=== PATIENT | male | born 1940 | race Caucasian/White ===

== ENCOUNTER 2020-12-21 13:31 | Inpatient (IN) ==
[2020-12-21] MEDS: Acetaminophen 325 MG TABLET PO PRN (23:00)
[2020-12-22 06:00] LABS: Basophils % 0.2 %; Eosinophils # 0.3 K/mcL (0.0-0.6); Eosinophils % 2.9 %; Hematocrit 24.8 % (37.5-50.1); Hemoglobin 8.5 g/dL (12.9-16.9); Immature Granulocytes % 1.9 % (0-4); Lymphocytes # 1.1 K/mcL (0.6-4.6); Lymphocytes % 10.3 %; Mean Corpuscular HGB Conc 34.3 g/dL (31.6-35.5); Mean Corpuscular Hemoglobin 32.2 pg (28.0-33.3); Mean Corpuscular Volume 93.9 fL (83.0-100.0); Mean Platelet Volume 8.6 fL (9.4-12.4); Monocytes # 1.4 K/mcL (0.0-1.3); Monocytes % 13.8 %; Neutrophils # 7.2 K/mcL (1.6-8.9); Platelet Count 159 K/mcL (140-400); Red Blood Count 2.64 M/mcL (4.19-5.50); Red Cell Distribution Width 13.4 % (11.5-14.5); Segmented Neutrophils % 70.9 %; White Blood Count 10.2 K/mcL (4.3-11.1)
[2020-12-22 06:18] LABS: INR 2.2; Prothrombin Time 24.9 Seconds (9.4-12.1)
[2020-12-22 06:20] LABS: Activated Partial Thrombo Time 37.3 Seconds (26.0-36.0)
[2020-12-22 06:25] LABS: BUN/Creatinine Ratio 49 (6-26); Blood Urea Nitrogen 40 mg/dL (8-23); Calcium 7.8 mg/dL (8.6-10.3); Carbon Dioxide 25 mEq/L (23-29); Chloride 95 mEq/L (98-107); Glucose 134 mg/dL (70-105); Magnesium 1.8 mg/dL (1.6-2.6); Osmolality,Calculated 272 (280-300); Potassium 4.1 mEq/L (3.5-5.1); Sodium 125 mEq/L (136-145); eGFR For African Americans > 60 (> 60); eGFR For Non-African Americans > 60 (> 60)
[2020-12-22] MEDS: lisinopriL 20 MG TABLET PO SCH (09:59)
[2020-12-22] MEDS: Aspirin 81 MG TAB.CHEW PO SCH (09:59)
[2020-12-22] MEDS: Metoprolol XL (24 HR) Succ 50 MG TAB.ER.24H PO SCH (09:59)
[2020-12-22] MEDS: Acetaminophen 325 MG TABLET PO PRN ×2 (09:59→18:55)
[2020-12-22] MEDS: Cyanocobalamin (B-12) 1,000 MCG TABLET PO SCH (10:00)
[2020-12-22] MEDS: amLODIPine 5 MG TABLET PO SCH (10:00)
[2020-12-22] MEDS: Multivit/Ca/Min/Fe/FA 1 TAB TABLET PO SCH ×2 (10:00→22:20)
[2020-12-22] MEDS: Furosemide 40 MG TABLET PO SCH (10:00)
[2020-12-22] MEDS: Latanoprost 2.5 ML BOTTLE BOTH EYES SCH (10:04)
[2020-12-22] MEDS: Budesonide/Formoterol 80/4.5 1 PUFF INH IH SCH ×2 (10:40→19:43)
[2020-12-22] MEDS: *HR* Warfarin 3 MG TABLET PO SCH (18:01)
[2020-12-23 07:52] LABS: Hematocrit 22.4 % (37.5-50.1); Hemoglobin 7.6 g/dL (12.9-16.9); Mean Corpuscular HGB Conc 33.9 g/dL (31.6-35.5); Mean Corpuscular Hemoglobin 32.5 pg (28.0-33.3); Mean Corpuscular Volume 95.7 fL (83.0-100.0); Mean Platelet Volume 9.1 fL (9.4-12.4); Platelet Count 177 K/mcL (140-400); Red Blood Count 2.34 M/mcL (4.19-5.50); Red Cell Distribution Width 13.6 % (11.5-14.5); White Blood Count 9.2 K/mcL (4.3-11.1)
[2020-12-23 08:00] LABS: INR 2.3; Prothrombin Time 25.8 Seconds (9.4-12.1)
[2020-12-23] MEDS: Furosemide 40 MG TABLET PO SCH (09:37)
[2020-12-23] MEDS: amLODIPine 5 MG TABLET PO SCH (09:37)
[2020-12-23] MEDS: Metoprolol XL (24 HR) Succ 50 MG TAB.ER.24H PO SCH (09:37)
[2020-12-23] MEDS: Cyanocobalamin (B-12) 1,000 MCG TABLET PO SCH (09:38)
[2020-12-23] MEDS: lisinopriL 20 MG TABLET PO SCH (09:38)
[2020-12-23] MEDS: Aspirin 81 MG TAB.CHEW PO SCH (09:38)
[2020-12-23] MEDS: Latanoprost 2.5 ML BOTTLE BOTH EYES SCH (09:38)
[2020-12-23] MEDS: Multivit/Ca/Min/Fe/FA 1 TAB TABLET PO SCH ×2 (09:38→22:07)
[2020-12-23] MEDS: Acetaminophen 325 MG TABLET PO PRN ×2 (09:44→22:07)
[2020-12-23] MEDS: Budesonide/Formoterol 80/4.5 1 PUFF INH IH SCH ×2 (10:58→20:06)
[2020-12-23 11:55] LABS: Alanine Aminotransferase 31 Units/L (7-52); Albumin/Globulin Ratio 1.3 (1.1-2.2); Alkaline Phosphatase 46 Units/L (34-104); Aspartate Amino Transferase 56 Units/L (13-39); BUN/Creatinine Ratio 50 (6-26); Bilirubin,Total 0.7 mg/dL (0.3-1.0); Blood Urea Nitrogen 32 mg/dL (8-23); Carbon Dioxide 26 mEq/L (23-29); Chloride 98 mEq/L (98-107); Globulin 2.4 g/dL (2.4-3.5); Glucose 140 mg/dL (70-105); Magnesium 2.1 mg/dL (1.6-2.6); Osmolality,Calculated 277 (280-300); Potassium 4.3 mEq/L (3.5-5.1); Sodium 129 mEq/L (136-145); Total Protein 5.4 g/dL (6.4-8.9); eGFR For African Americans > 60 (> 60); eGFR For Non-African Americans > 60 (> 60)
[2020-12-23] MEDS: *HR* Warfarin 3 MG TABLET PO SCH (16:04)
[2020-12-24 05:45] LABS: Hematocrit 20.4 % (37.5-50.1); Hemoglobin 6.8 g/dL (12.9-16.9); Mean Corpuscular HGB Conc 33.3 g/dL (31.6-35.5); Mean Corpuscular Hemoglobin 31.9 pg (28.0-33.3); Mean Corpuscular Volume 95.8 fL (83.0-100.0); Mean Platelet Volume 8.8 fL (9.4-12.4); Platelet Count 175 K/mcL (140-400); Red Blood Count 2.13 M/mcL (4.19-5.50); Red Cell Distribution Width 13.7 % (11.5-14.5); White Blood Count 9.3 K/mcL (4.3-11.1)
[2020-12-24] MEDS ORDERED: 0.9 % Sodium Chloride 250 ML IVC SCH (07:00)
[2020-12-24] MEDS: Cyanocobalamin (B-12) 1,000 MCG TABLET PO SCH (07:57)
[2020-12-24] MEDS: lisinopriL 20 MG TABLET PO SCH (07:57)
[2020-12-24] MEDS: Aspirin 81 MG TAB.CHEW PO SCH (07:58)
[2020-12-24] MEDS: Metoprolol XL (24 HR) Succ 50 MG TAB.ER.24H PO SCH (07:58)
[2020-12-24] MEDS: amLODIPine 5 MG TABLET PO SCH (07:58)
[2020-12-24] MEDS: Furosemide 40 MG TABLET PO SCH (07:58)
[2020-12-24] MEDS: Multivit/Ca/Min/Fe/FA 1 TAB TABLET PO SCH ×2 (07:58→19:53)
[2020-12-24] MEDS: Latanoprost 2.5 ML BOTTLE BOTH EYES SCH (08:00)
[2020-12-24 08:18] LABS: % Iron Saturation 60 % (20-55); Alanine Aminotransferase 33 Units/L (7-52); Albumin 3.1 g/dL (3.5-5.7); Albumin/Globulin Ratio 1.4 (1.1-2.2); Alkaline Phosphatase 47 Units/L (34-104); Aspartate Amino Transferase 48 Units/L (13-39); BUN/Creatinine Ratio 61 (6-26); Bilirubin,Total 0.8 mg/dL (0.3-1.0); Blood Urea Nitrogen 43 mg/dL (8-23); Calcium 8.1 mg/dL (8.6-10.3); Carbon Dioxide 25 mEq/L (23-29); Chloride 99 mEq/L (98-107); Globulin 2.2 g/dL (2.4-3.5); Glucose 139 mg/dL (70-105); Iron 126 mcg/dL (65-175); Magnesium 2.2 mg/dL (1.6-2.6); Osmolality,Calculated 281 (280-300); Potassium 4.5 mEq/L (3.5-5.1); Sodium 129 mEq/L (136-145); Total Protein 5.3 g/dL (6.4-8.9); Transferrin 150 mg/dL (203-362); eGFR For African Americans > 60 (> 60); eGFR For Non-African Americans > 60 (> 60)
[2020-12-24] MEDS: Budesonide/Formoterol 80/4.5 1 PUFF INH IH SCH ×2 (08:21→19:32)
[2020-12-24 08:42] LABS: Folate 6.2 ng/mL (3.0-16.0)
[2020-12-24 12:45] LABS: INR 2.8; Prothrombin Time 31.1 Seconds (9.4-12.1)
[2020-12-24] MEDS ORDERED: 0.9 % Sodium Chloride 250 ML ONE (13:34)
[2020-12-24 17:58] LABS: Hemoglobin 7.8 g/dL (12.9-16.9)
[2020-12-24] MEDS ORDERED: Warfarin perPT PO PRN (18:00)
[2020-12-24] MEDS: *HR* OxyCODONE/APAP 5/325 TABLET PO PRN (19:53)
[2020-12-25 06:15] LABS: INR 2.8; Prothrombin Time 31.1 Seconds (9.4-12.1)
[2020-12-25 06:19] LABS: Hematocrit 22.6 % (37.5-50.1); Hemoglobin 7.4 g/dL (12.9-16.9); Mean Corpuscular HGB Conc 32.7 g/dL (31.6-35.5); Mean Corpuscular Hemoglobin 31.6 pg (28.0-33.3); Mean Corpuscular Volume 96.6 fL (83.0-100.0); Mean Platelet Volume 8.5 fL (9.4-12.4); Platelet Count 204 K/mcL (140-400); Red Blood Count 2.34 M/mcL (4.19-5.50); Red Cell Distribution Width 14.3 % (11.5-14.5); White Blood Count 8.8 K/mcL (4.3-11.1)
[2020-12-25] MEDS: lisinopriL 20 MG TABLET PO SCH (07:51)
[2020-12-25] MEDS: Metoprolol XL (24 HR) Succ 50 MG TAB.ER.24H PO SCH (07:51)
[2020-12-25] MEDS: Multivit/Ca/Min/Fe/FA 1 TAB TABLET PO SCH ×2 (07:51→20:50)
[2020-12-25] MEDS: Furosemide 40 MG TABLET PO SCH (07:51)
[2020-12-25] MEDS: amLODIPine 5 MG TABLET PO SCH (07:51)
[2020-12-25] MEDS: Cyanocobalamin (B-12) 1,000 MCG TABLET PO SCH (07:51)
[2020-12-25] MEDS: Aspirin 81 MG TAB.CHEW PO SCH (07:52)
[2020-12-25] MEDS: Latanoprost 2.5 ML BOTTLE BOTH EYES SCH (07:52)
[2020-12-25 08:23] LABS: BUN/Creatinine Ratio 56 (6-26); Blood Urea Nitrogen 33 mg/dL (8-23); Calcium 8.2 mg/dL (8.6-10.3); Carbon Dioxide 25 mEq/L (23-29); Chloride 102 mEq/L (98-107); Glucose 135 mg/dL (70-105); Osmolality,Calculated 281 (280-300); Potassium 4.5 mEq/L (3.5-5.1); Sodium 131 mEq/L (136-145); eGFR For African Americans > 60 (> 60); eGFR For Non-African Americans > 60 (> 60)
[2020-12-25] MEDS: Budesonide/Formoterol 80/4.5 1 PUFF INH IH SCH ×2 (10:51→20:39)
[2020-12-25] MEDS: *HR* OxyCODONE/APAP 5/325 TABLET PO PRN (15:29)
[2020-12-25 16:05] LABS: Hematocrit 22.3 % (37.5-50.1); Hemoglobin 7.5 g/dL (12.9-16.9); Mean Corpuscular HGB Conc 33.6 g/dL (31.6-35.5); Mean Corpuscular Hemoglobin 32.6 pg (28.0-33.3); Mean Platelet Volume 8.4 fL (9.4-12.4); Platelet Count 205 K/mcL (140-400); Red Cell Distribution Width 14.4 % (11.5-14.5); White Blood Count 9.1 K/mcL (4.3-11.1)
[2020-12-25] MEDS: Acetaminophen 325 MG TABLET PO PRN (20:50)
[2020-12-25] MEDS: QUEtiapine Fumarate 25 MG TABLET PO SCH (20:50)
[2020-12-26 04:45] LABS: Hematocrit 21.5 % (37.5-50.1); Hemoglobin 7.2 g/dL (12.9-16.9); Mean Corpuscular HGB Conc 33.5 g/dL (31.6-35.5); Mean Corpuscular Hemoglobin 32.3 pg (28.0-33.3); Mean Corpuscular Volume 96.4 fL (83.0-100.0); Mean Platelet Volume 8.9 fL (9.4-12.4); Platelet Count 219 K/mcL (140-400); Red Blood Count 2.23 M/mcL (4.19-5.50); Red Cell Distribution Width 14.2 % (11.5-14.5); White Blood Count 8.3 K/mcL (4.3-11.1)
[2020-12-26 08:18] LABS: BUN/Creatinine Ratio 50 (6-26); Blood Urea Nitrogen 31 mg/dL (8-23); Calcium 8.1 mg/dL (8.6-10.3); Carbon Dioxide 26 mEq/L (23-29); Chloride 101 mEq/L (98-107); Glucose 123 mg/dL (70-105); Magnesium 1.9 mg/dL (1.6-2.6); Osmolality,Calculated 280 (280-300); Potassium 4.3 mEq/L (3.5-5.1); Sodium 131 mEq/L (136-145); eGFR For African Americans > 60 (> 60); eGFR For Non-African Americans > 60 (> 60)
[2020-12-26] MEDS: Aspirin 81 MG TAB.CHEW PO SCH (09:39)
[2020-12-26] MEDS: Furosemide 40 MG TABLET PO SCH (09:39)
[2020-12-26] MEDS: Metoprolol XL (24 HR) Succ 50 MG TAB.ER.24H PO SCH (09:39)
[2020-12-26] MEDS: lisinopriL 20 MG TABLET PO SCH (09:40)
[2020-12-26] MEDS: Cyanocobalamin (B-12) 1,000 MCG TABLET PO SCH (09:40)
[2020-12-26] MEDS: amLODIPine 5 MG TABLET PO SCH (09:40)
[2020-12-26] MEDS: Multivit/Ca/Min/Fe/FA 1 TAB TABLET PO SCH ×2 (09:40→21:51)
[2020-12-26] MEDS: Latanoprost 2.5 ML BOTTLE BOTH EYES SCH (09:43)
[2020-12-26] MEDS: Budesonide/Formoterol 80/4.5 1 PUFF INH IH SCH ×2 (11:22→20:57)
[2020-12-26] MEDS: Acetaminophen 325 MG TABLET PO PRN ×2 (13:46→21:52)
[2020-12-26] MEDS ORDERED: *HR* Warfarin 3 MG TABLET PO SCH (18:00)
[2020-12-26] MEDS: QUEtiapine Fumarate 25 MG TABLET PO SCH (21:51)
[2020-12-27 04:52] LABS: Basophils % 0.2 %; Eosinophils # 0.3 K/mcL (0.0-0.6); Eosinophils % 3.6 %; Hemoglobin 7.4 g/dL (12.9-16.9); Immature Granulocytes % 3.2 % (0-4); Mean Corpuscular HGB Conc 33.6 g/dL (31.6-35.5); Mean Corpuscular Hemoglobin 32.7 pg (28.0-33.3); Mean Corpuscular Volume 97.3 fL (83.0-100.0); Mean Platelet Volume 8.8 fL (9.4-12.4); Monocytes # 0.8 K/mcL (0.0-1.3); Monocytes % 10.2 %; Neutrophils # 5.7 K/mcL (1.6-8.9); Platelet Count 233 K/mcL (140-400); Red Blood Count 2.26 M/mcL (4.19-5.50); Red Cell Distribution Width 14.2 % (11.5-14.5); Segmented Neutrophils % 70.8 %; White Blood Count 8.1 K/mcL (4.3-11.1)
[2020-12-27 04:58] LABS: INR 1.7; Prothrombin Time 19.2 Seconds (9.4-12.1)
[2020-12-27] MEDS: Acetaminophen 325 MG TABLET PO PRN ×3 (07:42→21:11)
[2020-12-27] MEDS: Furosemide 40 MG TABLET PO SCH (07:43)
[2020-12-27] MEDS: Cyanocobalamin (B-12) 1,000 MCG TABLET PO SCH (07:43)
[2020-12-27] MEDS: Aspirin 81 MG TAB.CHEW PO SCH (07:43)
[2020-12-27] MEDS: amLODIPine 5 MG TABLET PO SCH (07:43)
[2020-12-27] MEDS: lisinopriL 20 MG TABLET PO SCH (07:43)
[2020-12-27] MEDS: Metoprolol XL (24 HR) Succ 50 MG TAB.ER.24H PO SCH (07:43)
[2020-12-27] MEDS: Multivit/Ca/Min/Fe/FA 1 TAB TABLET PO SCH ×2 (07:43→20:12)
[2020-12-27] MEDS: Latanoprost 2.5 ML BOTTLE BOTH EYES SCH (07:44)
[2020-12-27] MEDS: Budesonide/Formoterol 80/4.5 1 PUFF INH IH SCH ×2 (10:37→21:21)
[2020-12-27] MEDS ORDERED: Warfarin perPT PO PRN (18:00)
[2020-12-27] MEDS ORDERED: *HR* Warfarin 3 MG TABLET PO ONE (18:00)
[2020-12-27] MEDS: QUEtiapine Fumarate 25 MG TABLET PO SCH (20:12)
[2020-12-28 06:36] LABS: INR 1.4
[2020-12-28] MEDS: Budesonide/Formoterol 80/4.5 1 PUFF INH IH SCH ×2 (08:25→19:57)
[2020-12-28] MEDS: Cyanocobalamin (B-12) 1,000 MCG TABLET PO SCH (08:41)
[2020-12-28] MEDS: amLODIPine 5 MG TABLET PO SCH (08:41)
[2020-12-28] MEDS: Aspirin 81 MG TAB.CHEW PO SCH (08:41)
[2020-12-28] MEDS: Metoprolol XL (24 HR) Succ 50 MG TAB.ER.24H PO SCH (08:42)
[2020-12-28] MEDS: Acetaminophen 325 MG TABLET PO PRN ×2 (08:42→21:16)
[2020-12-28] MEDS: lisinopriL 20 MG TABLET PO SCH (08:42)
[2020-12-28] MEDS: Multivit/Ca/Min/Fe/FA 1 TAB TABLET PO SCH ×2 (08:42→21:17)
[2020-12-28] MEDS: Furosemide 40 MG TABLET PO SCH (08:42)
[2020-12-28] MEDS: Latanoprost 2.5 ML BOTTLE BOTH EYES SCH (08:43)
[2020-12-28] MEDS: *HR* Enoxaparin 150 MG/ML SYRINGE SQ SCH (16:21)
[2020-12-28] MEDS ORDERED: *HR* Warfarin 3 MG TABLET PO ONE (18:00)
[2020-12-28] MEDS: QUEtiapine Fumarate 25 MG TABLET PO SCH (21:16)
[2020-12-29 05:41] LABS: Basophils % 0.2 %; Eosinophils # 0.2 K/mcL (0.0-0.6); Eosinophils % 2.3 %; Hematocrit 23.4 % (37.5-50.1); Hemoglobin 7.8 g/dL (12.9-16.9); Immature Granulocytes % 2.6 % (0-4); Lymphocytes # 0.7 K/mcL (0.6-4.6); Lymphocytes % 8.3 %; Mean Corpuscular HGB Conc 33.3 g/dL (31.6-35.5); Mean Corpuscular Hemoglobin 32.9 pg (28.0-33.3); Mean Corpuscular Volume 98.7 fL (83.0-100.0); Mean Platelet Volume 8.5 fL (9.4-12.4); Monocytes # 0.8 K/mcL (0.0-1.3); Monocytes % 8.6 %; Neutrophils # 6.9 K/mcL (1.6-8.9); Platelet Count 294 K/mcL (140-400); Red Blood Count 2.37 M/mcL (4.19-5.50); Red Cell Distribution Width 15.1 % (11.5-14.5); White Blood Count 8.8 K/mcL (4.3-11.1)
[2020-12-29 05:45] LABS: INR 1.6; Prothrombin Time 17.4 Seconds (9.4-12.1)
[2020-12-29] MEDS: *HR* Enoxaparin 150 MG/ML SYRINGE SQ SCH ×2 (06:03→16:41)
[2020-12-29] MEDS: Multivit/Ca/Min/Fe/FA 1 TAB TABLET PO SCH ×2 (08:53→20:17)
[2020-12-29] MEDS: amLODIPine 5 MG TABLET PO SCH (08:53)
[2020-12-29] MEDS: Acetaminophen 325 MG TABLET PO PRN (08:54)
[2020-12-29] MEDS: Cyanocobalamin (B-12) 1,000 MCG TABLET PO SCH (08:54)
[2020-12-29] MEDS: Aspirin 81 MG TAB.CHEW PO SCH (08:54)
[2020-12-29] MEDS: lisinopriL 20 MG TABLET PO SCH (08:54)
[2020-12-29] MEDS: Furosemide 40 MG TABLET PO SCH (08:55)
[2020-12-29] MEDS: Metoprolol XL (24 HR) Succ 50 MG TAB.ER.24H PO SCH (08:55)
[2020-12-29] MEDS: Latanoprost 2.5 ML BOTTLE BOTH EYES SCH (08:56)
[2020-12-29] MEDS: Budesonide/Formoterol 80/4.5 1 PUFF INH IH SCH ×2 (09:49→20:29)
[2020-12-29] MEDS ORDERED: *HR* Warfarin 3 MG TABLET PO ONE (18:00)
[2020-12-29] MEDS: QUEtiapine Fumarate 25 MG TABLET PO SCH (20:17)
[2020-12-30] MEDS: *HR* Enoxaparin 150 MG/ML SYRINGE SQ SCH ×2 (05:11→16:30)
[2020-12-30 06:10] LABS: INR 1.7; Prothrombin Time 19.4 Seconds (9.4-12.1)
[2020-12-30] MEDS: Metoprolol XL (24 HR) Succ 50 MG TAB.ER.24H PO SCH (09:44)
[2020-12-30] MEDS: Furosemide 40 MG TABLET PO SCH (09:44)
[2020-12-30] MEDS: Multivit/Ca/Min/Fe/FA 1 TAB TABLET PO SCH ×2 (09:44→20:37)
[2020-12-30] MEDS: lisinopriL 20 MG TABLET PO SCH (09:44)
[2020-12-30] MEDS: Cyanocobalamin (B-12) 1,000 MCG TABLET PO SCH (09:44)
[2020-12-30] MEDS: amLODIPine 5 MG TABLET PO SCH (09:45)
[2020-12-30] MEDS: Aspirin 81 MG TAB.CHEW PO SCH (09:45)
[2020-12-30] MEDS: Latanoprost 2.5 ML BOTTLE BOTH EYES SCH (09:48)
[2020-12-30] MEDS: Budesonide/Formoterol 80/4.5 1 PUFF INH IH SCH ×2 (11:21→20:08)
[2020-12-30] MEDS ORDERED: *HR* Warfarin 3 MG TABLET PO ONE (18:00)
[2020-12-30] MEDS: QUEtiapine Fumarate 25 MG TABLET PO SCH (20:37)
[2020-12-30] MEDS: Acetaminophen 325 MG TABLET PO PRN (20:37)
[2020-12-31 04:51] LABS: INR 1.9; Prothrombin Time 21.3 Seconds (9.4-12.1)
[2020-12-31] MEDS: *HR* Enoxaparin 150 MG/ML SYRINGE SQ SCH ×2 (05:19→16:37)
[2020-12-31] MEDS: Acetaminophen 325 MG TABLET PO PRN (08:08)
[2020-12-31] MEDS: Aspirin 81 MG TAB.CHEW PO SCH (08:08)
[2020-12-31] MEDS: amLODIPine 5 MG TABLET PO SCH (08:09)
[2020-12-31] MEDS: Metoprolol XL (24 HR) Succ 50 MG TAB.ER.24H PO SCH (08:09)
[2020-12-31] MEDS: Multivit/Ca/Min/Fe/FA 1 TAB TABLET PO SCH ×2 (08:09→20:30)
[2020-12-31] MEDS: Furosemide 40 MG TABLET PO SCH (08:09)
[2020-12-31] MEDS: Cyanocobalamin (B-12) 1,000 MCG TABLET PO SCH (08:10)
[2020-12-31] MEDS: lisinopriL 20 MG TABLET PO SCH (08:10)
[2020-12-31] MEDS: Latanoprost 2.5 ML BOTTLE BOTH EYES SCH (08:14)
[2020-12-31] MEDS: Budesonide/Formoterol 80/4.5 1 PUFF INH IH SCH ×2 (10:40→20:03)
[2020-12-31 14:08] LABS: Adenovirus Not Detected (Not Detect); Coronavirus 229E Not Detected (Not Detect); Coronavirus HKU1 Not Detected (Not Detect); Coronavirus NL63 Not Detected (Not Detect); Coronavirus OC43 Not Detected (Not Detect); SARS-CoV-2 Not Detected (Not Detect)
[2020-12-31 14:09] LABS: Bordetella Pertussis Not Detected (Not Detect); Chlamydophila pneumoniae Not Detected (Not Detect); Human Metapneumovirus Not Detected (Not Detect); Human Rhinovirus/Enterovirus Not Detected (Not Detect); Influenza A Subtype 2009 H1 Not Detected (Not Detect); Influenza B Not Detected (Not Detect); Mycoplasma pneumoniae Not Detected (Not Detect); Parainfluenza Virus 1 Not Detected (Not Detect); Parainfluenza Virus 2 Not Detected (Not Detect); Parainfluenza Virus 3 Not Detected (Not Detect); Parainfluenza Virus 4 Not Detected (Not Detect); Respiratory Syncytial Virus Not Detected (Not Detect)
[2020-12-31] MEDS ORDERED: *HR* Warfarin 3 MG TABLET PO ONE (18:00)
[2020-12-31] MEDS: QUEtiapine Fumarate 25 MG TABLET PO SCH (20:29)
[2021-01-01 04:52] LABS: Basophils % 0.2 %; Eosinophils # 0.1 K/mcL (0.0-0.6); Eosinophils % 0.6 %; Hematocrit 22.1 % (37.5-50.1); Hemoglobin 7.3 g/dL (12.9-16.9); Immature Granulocytes % 0.8 % (0-4); Lymphocytes # 0.5 K/mcL (0.6-4.6); Lymphocytes % 6.1 %; Mean Corpuscular Hemoglobin 32.3 pg (28.0-33.3); Mean Corpuscular Volume 97.8 fL (83.0-100.0); Mean Platelet Volume 8.8 fL (9.4-12.4); Monocytes # 0.7 K/mcL (0.0-1.3); Monocytes % 8.6 %; Platelet Count 255 K/mcL (140-400); Red Blood Count 2.26 M/mcL (4.19-5.50); Red Cell Distribution Width 15.7 % (11.5-14.5); Segmented Neutrophils % 83.7 %; White Blood Count 8.4 K/mcL (4.3-11.1)
[2021-01-01 04:56] LABS: INR 2.9; Prothrombin Time 32.1 Seconds (9.4-12.1)
[2021-01-01] MEDS: Acetaminophen 325 MG TABLET PO PRN ×2 (04:59→20:19)
[2021-01-01] MEDS: *HR* Enoxaparin 150 MG/ML SYRINGE SQ SCH (05:00)
[2021-01-01 05:05] LABS: BUN/Creatinine Ratio 51 (6-26); Blood Urea Nitrogen 27 mg/dL (8-23); Calcium 7.6 mg/dL (8.6-10.3); Carbon Dioxide 27 mEq/L (23-29); Chloride 100 mEq/L (98-107); Glucose 135 mg/dL (70-105); Osmolality,Calculated 281 (280-300); Potassium 3.6 mEq/L (3.5-5.1); Sodium 132 mEq/L (136-145); eGFR For African Americans > 60 (> 60); eGFR For Non-African Americans > 60 (> 60)
[2021-01-01] MEDS: Multivit/Ca/Min/Fe/FA 1 TAB TABLET PO SCH ×2 (08:44→20:19)
[2021-01-01] MEDS: amLODIPine 5 MG TABLET PO SCH (08:45)
[2021-01-01] MEDS: Metoprolol XL (24 HR) Succ 50 MG TAB.ER.24H PO SCH (08:45)
[2021-01-01] MEDS: lisinopriL 20 MG TABLET PO SCH (08:45)
[2021-01-01] MEDS: Aspirin 81 MG TAB.CHEW PO SCH (08:45)
[2021-01-01] MEDS: Furosemide 40 MG TABLET PO SCH (08:45)
[2021-01-01] MEDS: Cyanocobalamin (B-12) 1,000 MCG TABLET PO SCH (08:45)
[2021-01-01] MEDS: Latanoprost 2.5 ML BOTTLE BOTH EYES SCH (08:46)
[2021-01-01] MEDS: Budesonide/Formoterol 80/4.5 1 PUFF INH IH SCH ×2 (10:04→19:54)
[2021-01-01] MEDS: QUEtiapine Fumarate 25 MG TABLET PO SCH (20:19)
[2021-01-02 04:37] LABS: INR 2.8; Prothrombin Time 30.5 Seconds (9.4-12.1)
[2021-01-02] MEDS: Furosemide 40 MG TABLET PO SCH (09:25)
[2021-01-02] MEDS: Aspirin 81 MG TAB.CHEW PO SCH (09:25)
[2021-01-02] MEDS: Metoprolol XL (24 HR) Succ 50 MG TAB.ER.24H PO SCH (09:25)
[2021-01-02] MEDS: Acetaminophen 325 MG TABLET PO PRN (09:25)
[2021-01-02] MEDS: Multivit/Ca/Min/Fe/FA 1 TAB TABLET PO SCH ×2 (09:25→20:57)
[2021-01-02] MEDS: lisinopriL 20 MG TABLET PO SCH (09:25)
[2021-01-02] MEDS: Cyanocobalamin (B-12) 1,000 MCG TABLET PO SCH (09:25)
[2021-01-02] MEDS: amLODIPine 5 MG TABLET PO SCH (09:26)
[2021-01-02] MEDS: Latanoprost 2.5 ML BOTTLE BOTH EYES SCH (10:37)
[2021-01-02] MEDS: Budesonide/Formoterol 80/4.5 1 PUFF INH IH SCH ×2 (10:37→20:18)
[2021-01-02] MEDS ORDERED: *HR* Warfarin 3 MG TABLET PO ONE (18:00)
[2021-01-02] MEDS: QUEtiapine Fumarate 25 MG TABLET PO SCH (20:57)
[2021-01-03 05:08] LABS: Basophils % 0.1 %; Eosinophils # 0.1 K/mcL (0.0-0.6); Eosinophils % 0.9 %; Immature Granulocytes % 0.7 % (0-4); Lymphocytes # 0.5 K/mcL (0.6-4.6); Lymphocytes % 6.7 %; Mean Corpuscular HGB Conc 33.3 g/dL (31.6-35.5); Mean Corpuscular Hemoglobin 32.4 pg (28.0-33.3); Mean Corpuscular Volume 97.2 fL (83.0-100.0); Mean Platelet Volume 8.9 fL (9.4-12.4); Monocytes # 0.6 K/mcL (0.0-1.3); Monocytes % 8.5 %; Neutrophils # 5.8 K/mcL (1.6-8.9); Platelet Count 223 K/mcL (140-400); Red Blood Count 2.16 M/mcL (4.19-5.50); Segmented Neutrophils % 83.1 %
[2021-01-03 05:12] LABS: INR 2.9; Prothrombin Time 32.6 Seconds (9.4-12.1)
[2021-01-03 05:24] LABS: BUN/Creatinine Ratio 48 (6-26); Blood Urea Nitrogen 24 mg/dL (8-23); Calcium 7.5 mg/dL (8.6-10.3); Carbon Dioxide 26 mEq/L (23-29); Chloride 98 mEq/L (98-107); Glucose 140 mg/dL (70-105); Osmolality,Calculated 276 (280-300); Potassium 3.3 mEq/L (3.5-5.1); Sodium 130 mEq/L (136-145); eGFR For African Americans > 60 (> 60); eGFR For Non-African Americans > 60 (> 60)
[2021-01-03 08:20] LABS: Iron 22 mcg/dL (65-175)
[2021-01-03] MEDS: lisinopriL 20 MG TABLET PO SCH (08:50)
[2021-01-03] MEDS: amLODIPine 5 MG TABLET PO SCH (08:50)
[2021-01-03] MEDS: Aspirin 81 MG TAB.CHEW PO SCH (08:50)
[2021-01-03] MEDS: Metoprolol XL (24 HR) Succ 50 MG TAB.ER.24H PO SCH (08:50)
[2021-01-03] MEDS: Multivit/Ca/Min/Fe/FA 1 TAB TABLET PO SCH ×2 (08:50→21:08)
[2021-01-03] MEDS: Latanoprost 2.5 ML BOTTLE BOTH EYES SCH (08:51)
[2021-01-03] MEDS: Furosemide 40 MG TABLET PO SCH (08:51)
[2021-01-03] MEDS: Cyanocobalamin (B-12) 1,000 MCG TABLET PO SCH (08:51)
[2021-01-03] MEDS: Budesonide/Formoterol 80/4.5 1 PUFF INH IH SCH ×2 (09:52→19:55)
[2021-01-03] MEDS: Cholecalciferol (D-3) 1,000 UNIT (25MCG) TABLET PO SCH (11:07)
[2021-01-03] MEDS ORDERED: 0.9 % Sodium Chloride 250 ML ONE (16:02)
[2021-01-03] MEDS ORDERED: Iron Sucrose Complex 200 MG in 0.9 % Sodium Chloride 100 ML IVPB ONE (18:00)
[2021-01-03] MEDS ORDERED: *HR* Warfarin 3 MG TABLET PO ONE (18:00)
[2021-01-03] MEDS: methocarbamoL 500 MG TABLET PO PRN (21:09)
[2021-01-03 21:43] LABS: Hemoglobin 7.5 g/dL (12.9-16.9)
[2021-01-04 05:14] LABS: Basophils % 0.1 %; Eosinophils # 0.1 K/mcL (0.0-0.6); Eosinophils % 1.3 %; Hematocrit 23.7 % (37.5-50.1); Hemoglobin 7.8 g/dL (12.9-16.9); Lymphocytes # 0.6 K/mcL (0.6-4.6); Lymphocytes % 7.1 %; Mean Corpuscular HGB Conc 32.9 g/dL (31.6-35.5); Mean Corpuscular Hemoglobin 31.7 pg (28.0-33.3); Mean Corpuscular Volume 96.3 fL (83.0-100.0); Monocytes # 0.7 K/mcL (0.0-1.3); Neutrophils # 6.7 K/mcL (1.6-8.9); Platelet Count 249 K/mcL (140-400); Red Blood Count 2.46 M/mcL (4.19-5.50); Red Cell Distribution Width 15.9 % (11.5-14.5); Segmented Neutrophils % 81.5 %; White Blood Count 8.2 K/mcL (4.3-11.1)
[2021-01-04 05:21] LABS: INR 3.4; Prothrombin Time 37.3 Seconds (9.4-12.1)
[2021-01-04 05:32] LABS: BUN/Creatinine Ratio 48 (6-26); Blood Urea Nitrogen 21 mg/dL (8-23); Calcium 7.5 mg/dL (8.6-10.3); Carbon Dioxide 26 mEq/L (23-29); Chloride 101 mEq/L (98-107); Glucose 143 mg/dL (70-105); Osmolality,Calculated 283 (280-300); Potassium 3.8 mEq/L (3.5-5.1); Sodium 134 mEq/L (136-145); eGFR For African Americans > 60 (> 60); eGFR For Non-African Americans > 60 (> 60)
[2021-01-04] MEDS: Multivit/Ca/Min/Fe/FA 1 TAB TABLET PO SCH ×2 (07:32→22:40)
[2021-01-04] MEDS: Furosemide 40 MG TABLET PO SCH (07:32)
[2021-01-04] MEDS: Cholecalciferol (D-3) 1,000 UNIT (25MCG) TABLET PO SCH (07:32)
[2021-01-04] MEDS: amLODIPine 5 MG TABLET PO SCH (07:32)
[2021-01-04] MEDS: Cyanocobalamin (B-12) 1,000 MCG TABLET PO SCH (07:32)
[2021-01-04] MEDS: Metoprolol XL (24 HR) Succ 50 MG TAB.ER.24H PO SCH (07:32)
[2021-01-04] MEDS: Aspirin 81 MG TAB.CHEW PO SCH (07:33)
[2021-01-04] MEDS: lisinopriL 20 MG TABLET PO SCH (07:33)
[2021-01-04] MEDS: Latanoprost 2.5 ML BOTTLE BOTH EYES SCH (09:27)
[2021-01-04] MEDS: Budesonide/Formoterol 80/4.5 1 PUFF INH IH SCH ×2 (11:00→18:33)
[2021-01-04] MEDS ORDERED: *HR* Warfarin 1 MG TABLET PO ONE (18:00)
[2021-01-05 05:59] LABS: INR 4.5; Prothrombin Time 49.6 Seconds (9.4-12.1)
[2021-01-05] MEDS: Metoprolol XL (24 HR) Succ 50 MG TAB.ER.24H PO SCH (08:08)
[2021-01-05] MEDS: Furosemide 40 MG TABLET PO SCH (08:08)
[2021-01-05] MEDS: Cholecalciferol (D-3) 1,000 UNIT (25MCG) TABLET PO SCH (08:08)
[2021-01-05] MEDS: lisinopriL 20 MG TABLET PO SCH (08:09)
[2021-01-05] MEDS: Multivit/Ca/Min/Fe/FA 1 TAB TABLET PO SCH ×2 (08:09→21:29)
[2021-01-05] MEDS: Aspirin 81 MG TAB.CHEW PO SCH (08:09)
[2021-01-05] MEDS: Cyanocobalamin (B-12) 1,000 MCG TABLET PO SCH (08:10)
[2021-01-05] MEDS: amLODIPine 5 MG TABLET PO SCH (08:10)
[2021-01-05] MEDS: Budesonide/Formoterol 80/4.5 1 PUFF INH IH SCH ×2 (10:17→20:18)
[2021-01-05] MEDS: Latanoprost 2.5 ML BOTTLE BOTH EYES SCH (12:24)
[2021-01-05] MEDS: methocarbamoL 500 MG TABLET PO PRN (12:24)
[2021-01-06 06:14] LABS: Hematocrit 24.9 % (37.5-50.1); Mean Corpuscular HGB Conc 32.1 g/dL (31.6-35.5); Mean Corpuscular Hemoglobin 31.1 pg (28.0-33.3); Mean Corpuscular Volume 96.9 fL (83.0-100.0); Mean Platelet Volume 9.2 fL (9.4-12.4); Platelet Count 290 K/mcL (140-400); Red Blood Count 2.57 M/mcL (4.19-5.50); Red Cell Distribution Width 16.4 % (11.5-14.5)
[2021-01-06 06:27] LABS: Prothrombin Time 43.8 Seconds (9.4-12.1)
[2021-01-06 06:30] LABS: Alanine Aminotransferase 57 Units/L (7-52); Albumin 2.6 g/dL (3.5-5.7); Albumin/Globulin Ratio 0.9 (1.1-2.2); Alkaline Phosphatase 89 Units/L (34-104); Aspartate Amino Transferase 25 Units/L (13-39); BUN/Creatinine Ratio 40 (6-26); Bilirubin,Total 1.5 mg/dL (0.3-1.0); Blood Urea Nitrogen 17 mg/dL (8-23); Calcium 7.8 mg/dL (8.6-10.3); Carbon Dioxide 26 mEq/L (23-29); Chloride 100 mEq/L (98-107); Globulin 2.8 g/dL (2.4-3.5); Glucose 156 mg/dL (70-105); Magnesium 1.7 mg/dL (1.6-2.6); Osmolality,Calculated 279 (280-300); Potassium 3.9 mEq/L (3.5-5.1); Sodium 132 mEq/L (136-145); Total Protein 5.4 g/dL (6.4-8.9); eGFR For African Americans > 60 (> 60); eGFR For Non-African Americans > 60 (> 60)
[2021-01-06] MEDS: lisinopriL 20 MG TABLET PO SCH (08:06)
[2021-01-06] MEDS: Cyanocobalamin (B-12) 1,000 MCG TABLET PO SCH (08:06)
[2021-01-06] MEDS: Furosemide 40 MG TABLET PO SCH ×2 (08:07→16:35)
[2021-01-06] MEDS: Aspirin 81 MG TAB.CHEW PO SCH (08:07)
[2021-01-06] MEDS: Cholecalciferol (D-3) 1,000 UNIT (25MCG) TABLET PO SCH (08:07)
[2021-01-06] MEDS: Metoprolol XL (24 HR) Succ 50 MG TAB.ER.24H PO SCH (08:07)
[2021-01-06] MEDS: amLODIPine 5 MG TABLET PO SCH (08:07)
[2021-01-06] MEDS: Multivit/Ca/Min/Fe/FA 1 TAB TABLET PO SCH ×2 (08:08→20:25)
[2021-01-06] MEDS: Latanoprost 2.5 ML BOTTLE BOTH EYES SCH (08:13)
[2021-01-06] MEDS: Budesonide/Formoterol 80/4.5 1 PUFF INH IH SCH ×2 (09:48→19:57)
[2021-01-06 11:47] LABS: Iron 11 mcg/dL (65-175)
[2021-01-07 07:36] LABS: INR 3.4; Prothrombin Time 37.5 Seconds (9.4-12.1)
[2021-01-07] MEDS: Budesonide/Formoterol 80/4.5 1 PUFF INH IH SCH ×2 (08:10→20:16)
[2021-01-07] MEDS: Cholecalciferol (D-3) 1,000 UNIT (25MCG) TABLET PO SCH (08:25)
[2021-01-07] MEDS: Aspirin 81 MG TAB.CHEW PO SCH (08:25)
[2021-01-07] MEDS: Metoprolol XL (24 HR) Succ 50 MG TAB.ER.24H PO SCH (08:25)
[2021-01-07] MEDS: lisinopriL 20 MG TABLET PO SCH (08:26)
[2021-01-07] MEDS: amLODIPine 5 MG TABLET PO SCH (08:26)
[2021-01-07] MEDS: Cyanocobalamin (B-12) 1,000 MCG TABLET PO SCH (08:26)
[2021-01-07] MEDS: Furosemide 40 MG TABLET PO SCH ×2 (08:26→17:18)
[2021-01-07] MEDS: Multivit/Ca/Min/Fe/FA 1 TAB TABLET PO SCH ×2 (08:26→21:55)
[2021-01-07] MEDS: Latanoprost 2.5 ML BOTTLE BOTH EYES SCH (08:31)
[2021-01-07] MEDS ORDERED: *HR* Warfarin 3 MG TABLET PO ONE (18:00)
[2021-01-07] MEDS: methocarbamoL 500 MG TABLET PO PRN (21:55)
[2021-01-08 06:09] LABS: INR 3.2; Prothrombin Time 35.9 Seconds (9.4-12.1)
[2021-01-08] MEDS: Budesonide/Formoterol 80/4.5 1 PUFF INH IH SCH ×2 (10:05→20:09)
[2021-01-08] MEDS: Cholecalciferol (D-3) 1,000 UNIT (25MCG) TABLET PO SCH (10:19)
[2021-01-08] MEDS: amLODIPine 5 MG TABLET PO SCH (10:20)
[2021-01-08] MEDS: Metoprolol XL (24 HR) Succ 50 MG TAB.ER.24H PO SCH (10:20)
[2021-01-08] MEDS: Furosemide 40 MG TABLET PO SCH ×2 (10:20→17:27)
[2021-01-08] MEDS: Latanoprost 2.5 ML BOTTLE BOTH EYES SCH (10:21)
[2021-01-08] MEDS: Cyanocobalamin (B-12) 1,000 MCG TABLET PO SCH (10:21)
[2021-01-08] MEDS: Multivit/Ca/Min/Fe/FA 1 TAB TABLET PO SCH ×2 (10:21→20:25)
[2021-01-08] MEDS: lisinopriL 20 MG TABLET PO SCH (10:21)
[2021-01-08] MEDS: Aspirin 81 MG TAB.CHEW PO SCH (10:21)
[2021-01-08] MEDS: methocarbamoL 500 MG TABLET PO PRN (11:28)
[2021-01-08] MEDS ORDERED: Warfarin 0.5 MG, Warfarin 1 MG PO ONE (18:00)
[2021-01-08] MEDS ORDERED: *HR* Warfarin 3 MG TABLET PO ONE (18:00)
[2021-01-08 20:35] LABS: % Iron Saturation 11 % (20-55); Transferrin 153 mg/dL (203-362)
[2021-01-08 20:39] LABS: % Iron Saturation 5 % (20-55); Transferrin 158 mg/dL (203-362)
[2021-01-09] MEDS: methocarbamoL 500 MG TABLET PO PRN (04:31)
[2021-01-09 06:49] LABS: Hematocrit 23.4 % (37.5-50.1); Hemoglobin 7.6 g/dL (12.9-16.9); Mean Corpuscular HGB Conc 32.5 g/dL (31.6-35.5); Mean Corpuscular Hemoglobin 31.4 pg (28.0-33.3); Mean Corpuscular Volume 96.7 fL (83.0-100.0); Platelet Count 310 K/mcL (140-400); Red Blood Count 2.42 M/mcL (4.19-5.50); Red Cell Distribution Width 15.7 % (11.5-14.5)
[2021-01-09 07:03] LABS: INR 3.2; Prothrombin Time 35.4 Seconds (9.4-12.1)
[2021-01-09 07:17] LABS: Alanine Aminotransferase 37 Units/L (7-52); Albumin 2.4 g/dL (3.5-5.7); Albumin/Globulin Ratio 0.8 (1.1-2.2); Alkaline Phosphatase 87 Units/L (34-104); Aspartate Amino Transferase 20 Units/L (13-39); BUN/Creatinine Ratio 44 (6-26); Bilirubin,Total 1.6 mg/dL (0.3-1.0); Blood Urea Nitrogen 19 mg/dL (8-23); Calcium 7.5 mg/dL (8.6-10.3); Carbon Dioxide 26 mEq/L (23-29); Chloride 98 mEq/L (98-107); Globulin 3.1 g/dL (2.4-3.5); Glucose 136 mg/dL (70-105); Magnesium 1.7 mg/dL (1.6-2.6); Osmolality,Calculated 274 (280-300); Potassium 3.4 mEq/L (3.5-5.1); Sodium 130 mEq/L (136-145); Total Protein 5.5 g/dL (6.4-8.9); eGFR For African Americans > 60 (> 60); eGFR For Non-African Americans > 60 (> 60)
[2021-01-09] MEDS: Aspirin 81 MG TAB.CHEW PO SCH (10:04)
[2021-01-09] MEDS: lisinopriL 20 MG TABLET PO SCH (10:04)
[2021-01-09] MEDS: Cholecalciferol (D-3) 1,000 UNIT (25MCG) TABLET PO SCH (10:05)
[2021-01-09] MEDS: Metoprolol XL (24 HR) Succ 50 MG TAB.ER.24H PO SCH (10:05)
[2021-01-09] MEDS: Furosemide 40 MG TABLET PO SCH ×2 (10:05→16:23)
[2021-01-09] MEDS: Cyanocobalamin (B-12) 1,000 MCG TABLET PO SCH (10:05)
[2021-01-09] MEDS: amLODIPine 5 MG TABLET PO SCH (10:05)
[2021-01-09] MEDS: Multivit/Ca/Min/Fe/FA 1 TAB TABLET PO SCH ×2 (10:06→19:59)
[2021-01-09] MEDS: Latanoprost 2.5 ML BOTTLE BOTH EYES SCH (10:07)
[2021-01-09] MEDS: Budesonide/Formoterol 80/4.5 1 PUFF INH IH SCH ×2 (11:07→20:03)
[2021-01-09] MEDS ORDERED: Bisacodyl 10 MG RECTAL SUPPOSITORY RC PRN (15:53)
[2021-01-09] MEDS: polyethylene glycoL 3350 17 GM POWD.PACK PO SCH (16:23)
[2021-01-09] MEDS ORDERED: *HR* Warfarin 1 MG TABLET PO ONE (18:00)
[2021-01-09 19:54] LABS: Bilirubin,Urine Negative (Negative); Blood,Urine Negative (Negative); Clarity,Urine Clear (Clear); Color,Urine Yellow (Yellow); Glucose,Urine (UA) Normal (Normal); Ketones,Urine Negative (Negative); Leukocyte Esterase,Urine Trace (Negative); Nitrite,Urine Negative (Negative); Protein,Urine 100 mg/dL (Neg-Trace); Specific Gravity,Urine >= 1.030 (1.010-1.025); Urobilinogen,Urine >=8.0 mg/dL (Normal)
[2021-01-09] MEDS: Sennosides/Docusate Sodium TABLET PO SCH (19:59)
[2021-01-09 20:00] LABS: Bacteria,Urine Moderate per hpf (None-Few); RBC,Urine 0-3 per hpf (0-3); Squamous Epithelial Cell,Urine Few per hpf (None-Few)
[2021-01-10 05:42] LABS: Hematocrit 22.9 % (37.5-50.1); Hemoglobin 7.2 g/dL (12.9-16.9); Mean Corpuscular HGB Conc 31.4 g/dL (31.6-35.5); Mean Corpuscular Hemoglobin 30.5 pg (28.0-33.3); Mean Platelet Volume 8.9 fL (9.4-12.4); Platelet Count 313 K/mcL (140-400); Red Blood Count 2.36 M/mcL (4.19-5.50); Red Cell Distribution Width 15.9 % (11.5-14.5); White Blood Count 11.8 K/mcL (4.3-11.1)
[2021-01-10 05:53] LABS: INR 3.2; Prothrombin Time 35.5 Seconds (9.4-12.1)
[2021-01-10 06:18] LABS: BUN/Creatinine Ratio 44 (6-26); Blood Urea Nitrogen 21 mg/dL (8-23); Calcium 7.6 mg/dL (8.6-10.3); Carbon Dioxide 28 mEq/L (23-29); Chloride 98 mEq/L (98-107); Glucose 136 mg/dL (70-105); Magnesium 2.5 mg/dL (1.6-2.6); Osmolality,Calculated 277 (280-300); Potassium 4.3 mEq/L (3.5-5.1); Sodium 131 mEq/L (136-145); eGFR For African Americans > 60 (> 60); eGFR For Non-African Americans > 60 (> 60)
[2021-01-10] MEDS: Budesonide/Formoterol 80/4.5 1 PUFF INH IH SCH ×2 (06:25→19:53)
[2021-01-10] MEDS: Furosemide 40 MG TABLET PO SCH (08:50)
[2021-01-10] MEDS: polyethylene glycoL 3350 17 GM POWD.PACK PO SCH (08:58)
[2021-01-10] MEDS: Multivit/Ca/Min/Fe/FA 1 TAB TABLET PO SCH ×2 (08:59→20:01)
[2021-01-10] MEDS: Aspirin 81 MG TAB.CHEW PO SCH (08:59)
[2021-01-10] MEDS: Metoprolol XL (24 HR) Succ 50 MG TAB.ER.24H PO SCH (08:59)
[2021-01-10] MEDS: Sennosides/Docusate Sodium TABLET PO SCH ×2 (08:59→20:01)
[2021-01-10] MEDS: Cholecalciferol (D-3) 1,000 UNIT (25MCG) TABLET PO SCH (09:00)
[2021-01-10] MEDS: lisinopriL 20 MG TABLET PO SCH (09:00)
[2021-01-10] MEDS: amLODIPine 5 MG TABLET PO SCH (09:00)
[2021-01-10] MEDS: Cyanocobalamin (B-12) 1,000 MCG TABLET PO SCH (09:00)
[2021-01-10] MEDS: Latanoprost 2.5 ML BOTTLE BOTH EYES SCH (09:02)
[2021-01-10] MEDS: Furosemide 40 MG/4 ML VIAL IVP SCH ×2 (09:55→19:52)
[2021-01-10] MEDS: levoFLOXacin 500 MG/100 ML 500 MG/100 ML BAG IVPB SCH (09:56)
[2021-01-10 12:41] LABS: Adenovirus Not Detected (Not Detect); Bordetella Pertussis Not Detected (Not Detect); Chlamydophila pneumoniae Not Detected (Not Detect); Coronavirus 229E Not Detected (Not Detect); Coronavirus HKU1 Not Detected (Not Detect); Coronavirus NL63 Not Detected (Not Detect); Coronavirus OC43 Not Detected (Not Detect); Human Metapneumovirus Not Detected (Not Detect); Human Rhinovirus/Enterovirus Not Detected (Not Detect); Influenza A Subtype 2009 H1 Not Detected (Not Detect); Influenza B Not Detected (Not Detect); Mycoplasma pneumoniae Not Detected (Not Detect); Parainfluenza Virus 1 Not Detected (Not Detect); Parainfluenza Virus 2 Not Detected (Not Detect); Parainfluenza Virus 3 Not Detected (Not Detect); Parainfluenza Virus 4 Not Detected (Not Detect); Respiratory Syncytial Virus Not Detected (Not Detect); SARS-CoV-2 Not Detected (Not Detect)
[2021-01-10] MEDS ORDERED: *HR* Warfarin 1 MG TABLET PO ONE (18:00)
[2021-01-10] MEDS ORDERED: Warfarin perPT PO PRN (18:20)
[2021-01-10] MEDS: tiZANidine 4 MG TABLET PO PRN (23:20)
[2021-01-11 05:53] LABS: INR 2.7; Prothrombin Time 29.8 Seconds (9.4-12.1)
[2021-01-11] MEDS: Aspirin 81 MG TAB.CHEW PO SCH (08:23)
[2021-01-11] MEDS: Cholecalciferol (D-3) 1,000 UNIT (25MCG) TABLET PO SCH (08:23)
[2021-01-11] MEDS: Metoprolol XL (24 HR) Succ 50 MG TAB.ER.24H PO SCH (08:23)
[2021-01-11] MEDS: Sennosides/Docusate Sodium TABLET PO SCH ×2 (08:23→20:57)
[2021-01-11] MEDS: polyethylene glycoL 3350 17 GM POWD.PACK PO SCH (08:24)
[2021-01-11] MEDS: Furosemide 40 MG/4 ML VIAL IVP SCH ×2 (08:24→20:58)
[2021-01-11] MEDS: amLODIPine 5 MG TABLET PO SCH (08:24)
[2021-01-11] MEDS: levoFLOXacin 500 MG/100 ML 500 MG/100 ML BAG IVPB SCH (08:24)
[2021-01-11] MEDS: lisinopriL 20 MG TABLET PO SCH (08:24)
[2021-01-11] MEDS: Cyanocobalamin (B-12) 1,000 MCG TABLET PO SCH (08:24)
[2021-01-11] MEDS: Multivit/Ca/Min/Fe/FA 1 TAB TABLET PO SCH ×2 (08:24→20:58)
[2021-01-11] MEDS: Latanoprost 2.5 ML BOTTLE BOTH EYES SCH (08:24)
[2021-01-11] MEDS: Budesonide/Formoterol 80/4.5 1 PUFF INH IH SCH ×3 (09:26→20:27)
[2021-01-11] MEDS: tiZANidine 4 MG TABLET PO PRN ×2 (09:47→21:30)
[2021-01-11 11:10] LABS: Basophils % 0.1 %; Eosinophils % 0.2 %; Hematocrit 22.5 % (37.5-50.1); Immature Granulocytes % 1.1 % (0-4); Lymphocytes # 0.4 K/mcL (0.6-4.6); Lymphocytes % 3.3 %; Mean Corpuscular HGB Conc 31.1 g/dL (31.6-35.5); Mean Corpuscular Hemoglobin 29.9 pg (28.0-33.3); Mean Corpuscular Volume 96.2 fL (83.0-100.0); Mean Platelet Volume 8.7 fL (9.4-12.4); Monocytes # 0.8 K/mcL (0.0-1.3); Monocytes % 6.4 %; Neutrophils # 10.7 K/mcL (1.6-8.9); Platelet Count 318 K/mcL (140-400); Red Blood Count 2.34 M/mcL (4.19-5.50); Red Cell Distribution Width 15.8 % (11.5-14.5); Segmented Neutrophils % 88.9 %
[2021-01-11 11:26] LABS: BUN/Creatinine Ratio 37 (6-26); Blood Urea Nitrogen 22 mg/dL (8-23); Calcium 7.6 mg/dL (8.6-10.3); Carbon Dioxide 26 mEq/L (23-29); Chloride 95 mEq/L (98-107); Glucose 161 mg/dL (70-105); Osmolality,Calculated 273 (280-300); Sodium 128 mEq/L (136-145); eGFR For African Americans > 60 (> 60); eGFR For Non-African Americans > 60 (> 60)
[2021-01-11] MEDS ORDERED: 0.9 % Sodium Chloride 250 ML IVC SCH (13:45)
[2021-01-11] MEDS ORDERED: Perflutren Lipid Microsphere 1.3 ML in 0.9 % Sodium Chloride 8.7 ML IVP PRN (15:51)
[2021-01-11] MEDS ORDERED: *HR* Warfarin 4 MG TABLET PO ONE (18:00)
[2021-01-11] MEDS: Albumin 25% 25gram/100mL 25 GM/100 ML IV.SOLN IVPB SCH (18:38)
[2021-01-12] MEDS: Albumin 25% 25gram/100mL 25 GM/100 ML IV.SOLN IVPB SCH ×2 (04:36→16:59)
[2021-01-12 06:07] LABS: Basophils % 0.1 %; Eosinophils # 0.1 K/mcL (0.0-0.6); Eosinophils % 0.6 %; Hematocrit 23.6 % (37.5-50.1); Hemoglobin 7.6 g/dL (12.9-16.9); Lymphocytes # 0.6 K/mcL (0.6-4.6); Lymphocytes % 5.4 %; Mean Corpuscular HGB Conc 32.2 g/dL (31.6-35.5); Mean Corpuscular Hemoglobin 30.6 pg (28.0-33.3); Mean Corpuscular Volume 95.2 fL (83.0-100.0); Mean Platelet Volume 8.6 fL (9.4-12.4); Monocytes # 0.8 K/mcL (0.0-1.3); Monocytes % 7.1 %; Neutrophils # 9.4 K/mcL (1.6-8.9); Platelet Count 318 K/mcL (140-400); Red Blood Count 2.48 M/mcL (4.19-5.50); Red Cell Distribution Width 15.8 % (11.5-14.5); Segmented Neutrophils % 85.8 %
[2021-01-12 06:14] LABS: INR 2.4; Prothrombin Time 26.7 Seconds (9.4-12.1)
[2021-01-12 06:25] LABS: BUN/Creatinine Ratio 50 (6-26); Blood Urea Nitrogen 23 mg/dL (8-23); Calcium 7.7 mg/dL (8.6-10.3); Carbon Dioxide 27 mEq/L (23-29); Chloride 94 mEq/L (98-107); Glucose 165 mg/dL (70-105); Osmolality,Calculated 273 (280-300); Potassium 3.4 mEq/L (3.5-5.1); Sodium 128 mEq/L (136-145); eGFR For African Americans > 60 (> 60); eGFR For Non-African Americans > 60 (> 60)
[2021-01-12] MEDS: Budesonide/Formoterol 80/4.5 1 PUFF INH IH SCH ×2 (07:31→20:17)
[2021-01-12] MEDS: Metoprolol XL (24 HR) Succ 50 MG TAB.ER.24H PO SCH (07:57)
[2021-01-12] MEDS: Aspirin 81 MG TAB.CHEW PO SCH (07:57)
[2021-01-12] MEDS: Multivit/Ca/Min/Fe/FA 1 TAB TABLET PO SCH ×2 (07:57→20:01)
[2021-01-12] MEDS: amLODIPine 5 MG TABLET PO SCH (07:57)
[2021-01-12] MEDS: Cyanocobalamin (B-12) 1,000 MCG TABLET PO SCH (07:58)
[2021-01-12] MEDS: polyethylene glycoL 3350 17 GM POWD.PACK PO SCH (07:58)
[2021-01-12] MEDS: levoFLOXacin 500 MG/100 ML 500 MG/100 ML BAG IVPB SCH (07:58)
[2021-01-12] MEDS: Cholecalciferol (D-3) 1,000 UNIT (25MCG) TABLET PO SCH (07:58)
[2021-01-12] MEDS: Furosemide 40 MG/4 ML VIAL IVP SCH ×2 (07:58→19:58)
[2021-01-12] MEDS: Sennosides/Docusate Sodium TABLET PO SCH ×2 (07:58→20:00)
[2021-01-12] MEDS: lisinopriL 20 MG TABLET PO SCH (07:58)
[2021-01-12] MEDS: Latanoprost 2.5 ML BOTTLE BOTH EYES SCH (07:59)
[2021-01-12] MEDS: tiZANidine 4 MG TABLET PO PRN ×2 (13:23→22:55)
[2021-01-12] MEDS ORDERED: *HR* Warfarin 4 MG TABLET PO ONE (18:00)
[2021-01-12] MEDS: Amoxicillin 500 MG CAPSULE PO SCH (20:00)
[2021-01-13 06:18] LABS: Basophils % 0.1 %; Eosinophils % 0.4 %; Hematocrit 19.7 % (37.5-50.1); Hemoglobin 6.3 g/dL (12.9-16.9); Immature Granulocytes % 1.1 % (0-4); Lymphocytes # 0.8 K/mcL (0.6-4.6); Lymphocytes % 7.6 %; Mean Corpuscular Hemoglobin 30.6 pg (28.0-33.3); Mean Corpuscular Volume 95.6 fL (83.0-100.0); Mean Platelet Volume 8.8 fL (9.4-12.4); Monocytes # 0.8 K/mcL (0.0-1.3); Monocytes % 7.6 %; Neutrophils # 8.6 K/mcL (1.6-8.9); Platelet Count 344 K/mcL (140-400); Red Blood Count 2.06 M/mcL (4.19-5.50); Red Cell Distribution Width 15.7 % (11.5-14.5); Segmented Neutrophils % 83.2 %; White Blood Count 10.4 K/mcL (4.3-11.1)
[2021-01-13 06:27] LABS: INR 3.6; Prothrombin Time 40.1 Seconds (9.4-12.1)
[2021-01-13 06:42] LABS: BUN/Creatinine Ratio 68 (6-26); Blood Urea Nitrogen 36 mg/dL (8-23); Calcium 7.6 mg/dL (8.6-10.3); Carbon Dioxide 27 mEq/L (23-29); Chloride 97 mEq/L (98-107); Glucose 140 mg/dL (70-105); Osmolality,Calculated 283 (280-300); Potassium 3.7 mEq/L (3.5-5.1); Sodium 131 mEq/L (136-145); eGFR For African Americans > 60 (> 60); eGFR For Non-African Americans > 60 (> 60)
[2021-01-13] MEDS ORDERED: 0.9 % Sodium Chloride 250 ML IVC SCH (07:00)
[2021-01-13] MEDS ORDERED: 0.9 % Sodium Chloride 250 ML ONE (09:40)
[2021-01-13] MEDS: amLODIPine 5 MG TABLET PO SCH (10:28)
[2021-01-13] MEDS: Cholecalciferol (D-3) 1,000 UNIT (25MCG) TABLET PO SCH (10:28)
[2021-01-13] MEDS: Furosemide 40 MG/4 ML VIAL IVP SCH (10:28)
[2021-01-13] MEDS: Cyanocobalamin (B-12) 1,000 MCG TABLET PO SCH (10:28)
[2021-01-13] MEDS: Amoxicillin 500 MG CAPSULE PO SCH (10:28)
[2021-01-13] MEDS: lisinopriL 20 MG TABLET PO SCH (10:28)
[2021-01-13] MEDS: Multivit/Ca/Min/Fe/FA 1 TAB TABLET PO SCH (10:29)
[2021-01-13] MEDS: Aspirin 81 MG TAB.CHEW PO SCH (10:29)
[2021-01-13] MEDS: Latanoprost 2.5 ML BOTTLE BOTH EYES SCH (10:29)
[2021-01-13] MEDS: Sennosides/Docusate Sodium TABLET PO SCH (10:29)
[2021-01-13] MEDS: Metoprolol XL (24 HR) Succ 50 MG TAB.ER.24H PO SCH (10:29)
[2021-01-13] MEDS: polyethylene glycoL 3350 17 GM POWD.PACK PO SCH (10:29)
[2021-01-13] MEDS: Budesonide/Formoterol 80/4.5 1 PUFF INH IH SCH (10:41)
[2021-01-13 14:00] VITALS: BP 126/70; PULSE 92; RESP 20; TEMP 99.2; O2SAT 91
[2021-01-13] MEDS ORDERED: Isovue-370 500 ML BOTTLE IVP ONE (14:34)
[2021-01-13] MEDS: tiZANidine 4 MG TABLET PO PRN (16:05)
== END 2021-01-13 18:15 | disposition short-term general hospital (02) | DRG 560 ==
LOC: INPGRE 20:00
PROVIDERS: ADMIT Family Medicine; ATTEND Family Medicine

== ENCOUNTER 2021-01-18 12:18 | Inpatient (IN) ==
[2021-01-18] MEDS ORDERED: Warfarin perPT PO PRN (18:00)
[2021-01-18] MEDS ORDERED: *HR* Warfarin 4 MG TABLET PO ONE (21:00)
[2021-01-19] MEDS: Multivit/Ca/Min/Fe/FA 1 TAB TABLET PO SCH ×3 (00:07→20:20)
[2021-01-19] MEDS: Latanoprost 2.5 ML BOTTLE RIGHT EYE SCH ×2 (00:07→20:18)
[2021-01-19] MEDS: *HR* Enoxaparin 150 MG/ML SYRINGE SQ SCH ×2 (00:08→09:01)
[2021-01-19 05:55] LABS: Basophils % 0.2 %; Eosinophils # 0.1 K/mcL (0.0-0.6); Eosinophils % 0.5 %; Hematocrit 25.5 % (37.5-50.1); Hemoglobin 8.3 g/dL (12.9-16.9); Immature Granulocytes % 1.6 % (0-4); Lymphocytes # 0.8 K/mcL (0.6-4.6); Lymphocytes % 8.3 %; Mean Corpuscular HGB Conc 32.5 g/dL (31.6-35.5); Mean Corpuscular Hemoglobin 30.3 pg (28.0-33.3); Mean Corpuscular Volume 93.1 fL (83.0-100.0); Mean Platelet Volume 8.2 fL (9.4-12.4); Monocytes # 0.8 K/mcL (0.0-1.3); Monocytes % 7.4 %; Neutrophils # 8.3 K/mcL (1.6-8.9); Platelet Count 364 K/mcL (140-400); Red Blood Count 2.74 M/mcL (4.19-5.50); White Blood Count 10.2 K/mcL (4.3-11.1)
[2021-01-19 06:03] LABS: Prothrombin Time 22.5 Seconds (9.4-12.1)
[2021-01-19 06:13] LABS: BUN/Creatinine Ratio 22 (6-26); Blood Urea Nitrogen 8 mg/dL (8-23); Calcium 7.7 mg/dL (8.6-10.3); Carbon Dioxide 30 mEq/L (23-29); Chloride 96 mEq/L (98-107); Glucose 126 mg/dL (70-105); Osmolality,Calculated 272 (280-300); Potassium 3.6 mEq/L (3.5-5.1); Sodium 131 mEq/L (136-145); eGFR For African Americans > 60 (> 60); eGFR For Non-African Americans > 60 (> 60)
[2021-01-19] MEDS ORDERED: lisinopriL 20 MG TABLET PO SCH (09:00)
[2021-01-19] MEDS: Budesonide/Formoterol 80/4.5 1 PUFF INH IH SCH ×2 (09:00)
[2021-01-19] MEDS: amLODIPine 5 MG TABLET PO SCH (09:01)
[2021-01-19] MEDS: Aspirin 81 MG TAB.CHEW PO SCH (09:01)
[2021-01-19] MEDS: Cyanocobalamin (B-12) 1,000 MCG TABLET PO SCH (09:01)
[2021-01-19] MEDS: Furosemide 40 MG TABLET PO SCH (09:01)
[2021-01-19] MEDS: Metoprolol XL (24 HR) Succ 50 MG TAB.ER.24H PO SCH (09:01)
[2021-01-19] MEDS: lisinopriL 20 MG TABLET PO SCH (09:01)
[2021-01-19 12:28] LABS: Prealbumin 8.1 mg/dL (17.0-34.0)
[2021-01-19] MEDS: *HR* OxyCODONE Immed Rel 5 MG TABLET PO PRN (14:51)
[2021-01-19] MEDS ORDERED: *HR* Warfarin 4 MG TABLET PO ONE (18:00)
[2021-01-20] MEDS: Budesonide/Formoterol 80/4.5 1 PUFF INH IH SCH (02:14)
[2021-01-20] MEDS: amLODIPine 5 MG TABLET PO SCH (09:38)
[2021-01-20] MEDS: lisinopriL 20 MG TABLET PO SCH (09:39)
[2021-01-20] MEDS: Aspirin 81 MG TAB.CHEW PO SCH (09:39)
[2021-01-20] MEDS: Multivit/Ca/Min/Fe/FA 1 TAB TABLET PO SCH ×2 (09:39→20:02)
[2021-01-20] MEDS: Cyanocobalamin (B-12) 1,000 MCG TABLET PO SCH (09:39)
[2021-01-20] MEDS: Metoprolol XL (24 HR) Succ 50 MG TAB.ER.24H PO SCH (09:39)
[2021-01-20] MEDS: Furosemide 40 MG TABLET PO SCH (09:39)
[2021-01-20] MEDS: Latanoprost 2.5 ML BOTTLE RIGHT EYE SCH (20:03)
[2021-01-20 20:17] LABS: INR 2.5; Prothrombin Time 27.8 Seconds (9.4-12.1)
[2021-01-20] MEDS ORDERED: *HR* Warfarin 4 MG TABLET PO ONE (21:00)
[2021-01-21] MEDS: Budesonide/Formoterol 80/4.5 1 PUFF INH IH SCH ×3 (02:57→20:38)
[2021-01-21 04:43] LABS: Hematocrit 27.4 % (37.5-50.1); Hemoglobin 8.8 g/dL (12.9-16.9); Mean Corpuscular HGB Conc 32.1 g/dL (31.6-35.5); Mean Corpuscular Volume 93.5 fL (83.0-100.0); Mean Platelet Volume 8.4 fL (9.4-12.4); Platelet Count 406 K/mcL (140-400); Red Blood Count 2.93 M/mcL (4.19-5.50); Red Cell Distribution Width 16.1 % (11.5-14.5); White Blood Count 11.2 K/mcL (4.3-11.1)
[2021-01-21 04:52] LABS: INR 2.5; Prothrombin Time 27.4 Seconds (9.4-12.1)
[2021-01-21 05:03] LABS: BUN/Creatinine Ratio 22 (6-26); Blood Urea Nitrogen 8 mg/dL (8-23); Calcium 7.8 mg/dL (8.6-10.3); Carbon Dioxide 31 mEq/L (23-29); Chloride 94 mEq/L (98-107); Glucose 134 mg/dL (70-105); Magnesium 1.9 mg/dL (1.6-2.6); Osmolality,Calculated 270 (280-300); Potassium 3.9 mEq/L (3.5-5.1); Sodium 130 mEq/L (136-145); eGFR For African Americans > 60 (> 60); eGFR For Non-African Americans > 60 (> 60)
[2021-01-21] MEDS: lisinopriL 20 MG TABLET PO SCH (08:36)
[2021-01-21] MEDS: Aspirin 81 MG TAB.CHEW PO SCH (08:36)
[2021-01-21] MEDS: Metoprolol XL (24 HR) Succ 50 MG TAB.ER.24H PO SCH (08:36)
[2021-01-21] MEDS: Furosemide 40 MG TABLET PO SCH (08:36)
[2021-01-21] MEDS: amLODIPine 5 MG TABLET PO SCH (08:36)
[2021-01-21] MEDS: Multivit/Ca/Min/Fe/FA 1 TAB TABLET PO SCH ×2 (08:37→19:45)
[2021-01-21] MEDS: Cyanocobalamin (B-12) 1,000 MCG TABLET PO SCH (08:37)
[2021-01-21] MEDS: *HR* OxyCODONE Immed Rel 5 MG TABLET PO PRN (08:48)
[2021-01-21] MEDS: Furosemide 40 MG/4 ML VIAL IVP SCH (14:48)
[2021-01-21] MEDS: levoFLOXacin 500 MG TABLET PO SCH (15:51)
[2021-01-21] MEDS ORDERED: Furosemide 40 MG/4 ML VIAL IVP SCH (17:00)
[2021-01-21] MEDS ORDERED: *HR* Warfarin 4 MG TABLET PO ONE (18:00)
[2021-01-21] MEDS: Latanoprost 2.5 ML BOTTLE RIGHT EYE SCH (19:46)
[2021-01-21] MEDS: Ipratropium/Albuterol Neb 3 ML IH SCH (20:38)
[2021-01-22] MEDS: Acetaminophen 325 MG TABLET PO PRN (03:41)
[2021-01-22] MEDS: Ipratropium/Albuterol Neb 3 ML IH SCH ×4 (04:22→21:12)
[2021-01-22 04:50] LABS: Hematocrit 26.2 % (37.5-50.1); Hemoglobin 8.4 g/dL (12.9-16.9); Mean Corpuscular HGB Conc 32.1 g/dL (31.6-35.5); Mean Corpuscular Hemoglobin 29.7 pg (28.0-33.3); Mean Corpuscular Volume 92.6 fL (83.0-100.0); Mean Platelet Volume 8.3 fL (9.4-12.4); Platelet Count 423 K/mcL (140-400); Red Blood Count 2.83 M/mcL (4.19-5.50); Red Cell Distribution Width 15.8 % (11.5-14.5); White Blood Count 11.3 K/mcL (4.3-11.1)
[2021-01-22 04:53] LABS: INR 2.9; Prothrombin Time 31.8 Seconds (9.4-12.1)
[2021-01-22 05:05] LABS: Alanine Aminotransferase 33 Units/L (7-52); Albumin 2.5 g/dL (3.5-5.7); Albumin/Globulin Ratio 0.7 (1.1-2.2); Alkaline Phosphatase 83 Units/L (34-104); Aspartate Amino Transferase 23 Units/L (13-39); BUN/Creatinine Ratio 22 (6-26); Bilirubin,Total 0.9 mg/dL (0.3-1.0); Blood Urea Nitrogen 10 mg/dL (8-23); Calcium 7.7 mg/dL (8.6-10.3); Carbon Dioxide 31 mEq/L (23-29); Chloride 94 mEq/L (98-107); Globulin 3.5 g/dL (2.4-3.5); Glucose 139 mg/dL (70-105); Magnesium 1.6 mg/dL (1.6-2.6); Osmolality,Calculated 271 (280-300); Potassium 3.9 mEq/L (3.5-5.1); Sodium 130 mEq/L (136-145); eGFR For African Americans > 60 (> 60); eGFR For Non-African Americans > 60 (> 60)
[2021-01-22] MEDS: Metoprolol XL (24 HR) Succ 50 MG TAB.ER.24H PO SCH (08:00)
[2021-01-22] MEDS: amLODIPine 5 MG TABLET PO SCH (08:00)
[2021-01-22] MEDS: Cyanocobalamin (B-12) 1,000 MCG TABLET PO SCH (08:00)
[2021-01-22] MEDS: Aspirin 81 MG TAB.CHEW PO SCH (08:00)
[2021-01-22] MEDS: Multivit/Ca/Min/Fe/FA 1 TAB TABLET PO SCH ×2 (08:00→20:59)
[2021-01-22] MEDS: lisinopriL 20 MG TABLET PO SCH (08:00)
[2021-01-22] MEDS: Furosemide 40 MG/4 ML VIAL IVP SCH ×2 (08:01→18:10)
[2021-01-22] MEDS: levoFLOXacin 500 MG TABLET PO SCH (08:01)
[2021-01-22] MEDS ORDERED: Bisacodyl 10 MG RECTAL SUPPOSITORY RC ONE (10:35)
[2021-01-22] MEDS ORDERED: MOM Conc 10 ML UD.LIQ PO PRN (10:56)
[2021-01-22] MEDS: Budesonide/Formoterol 80/4.5 1 PUFF INH IH SCH ×2 (11:07→21:12)
[2021-01-22] MEDS: polyethylene glycoL 3350 17 GM POWD.PACK PO SCH (14:49)
[2021-01-22] MEDS: Sennosides/Docusate Sodium TABLET PO SCH (20:59)
[2021-01-22] MEDS: Latanoprost 2.5 ML BOTTLE RIGHT EYE SCH (20:59)
[2021-01-23] MEDS: Ipratropium/Albuterol Neb 3 ML IH SCH ×4 (04:03→20:45)
[2021-01-23 04:33] LABS: INR 2.9; Prothrombin Time 31.6 Seconds (9.4-12.1)
[2021-01-23] MEDS: levoFLOXacin 500 MG TABLET PO SCH (09:23)
[2021-01-23] MEDS: amLODIPine 5 MG TABLET PO SCH (09:23)
[2021-01-23] MEDS: Sennosides/Docusate Sodium TABLET PO SCH ×2 (09:23→21:12)
[2021-01-23] MEDS: lisinopriL 20 MG TABLET PO SCH (09:23)
[2021-01-23] MEDS: Metoprolol XL (24 HR) Succ 50 MG TAB.ER.24H PO SCH (09:24)
[2021-01-23] MEDS: Multivit/Ca/Min/Fe/FA 1 TAB TABLET PO SCH ×2 (09:24→21:12)
[2021-01-23] MEDS: Furosemide 40 MG/4 ML VIAL IVP SCH ×2 (09:24→16:18)
[2021-01-23] MEDS: Aspirin 81 MG TAB.CHEW PO SCH (09:24)
[2021-01-23] MEDS: polyethylene glycoL 3350 17 GM POWD.PACK PO SCH (09:24)
[2021-01-23] MEDS: Cyanocobalamin (B-12) 1,000 MCG TABLET PO SCH (09:25)
[2021-01-23] MEDS: Budesonide/Formoterol 80/4.5 1 PUFF INH IH SCH ×2 (11:05→20:45)
[2021-01-23 14:44] LABS: Bilirubin,Urine Negative (Negative); Blood,Urine Trace-intact (Negative); Clarity,Urine Clear (Clear); Color,Urine Yellow (Yellow); Glucose,Urine (UA) Normal (Normal); Ketones,Urine Negative (Negative); Leukocyte Esterase,Urine Negative (Negative); Nitrite,Urine Negative (Negative); Protein,Urine Negative (Neg-Trace)
[2021-01-23 14:55] LABS: RBC,Urine 0-3 per hpf (0-3); WBC,Urine 0-3 per hpf (0-3)
[2021-01-23] MEDS: Latanoprost 2.5 ML BOTTLE RIGHT EYE SCH (21:12)
[2021-01-24] MEDS: Ipratropium/Albuterol Neb 3 ML IH SCH ×4 (03:51→22:02)
[2021-01-24 06:16] LABS: Hematocrit 27.1 % (37.5-50.1); Hemoglobin 8.7 g/dL (12.9-16.9); Mean Corpuscular HGB Conc 32.1 g/dL (31.6-35.5); Mean Corpuscular Hemoglobin 29.5 pg (28.0-33.3); Mean Corpuscular Volume 91.9 fL (83.0-100.0); Mean Platelet Volume 8.1 fL (9.4-12.4); Platelet Count 382 K/mcL (140-400); Red Blood Count 2.95 M/mcL (4.19-5.50); White Blood Count 10.1 K/mcL (4.3-11.1)
[2021-01-24 06:21] LABS: INR 2.3; Prothrombin Time 25.3 Seconds (9.4-12.1)
[2021-01-24 06:35] LABS: BUN/Creatinine Ratio 25 (6-26); Blood Urea Nitrogen 11 mg/dL (8-23); Calcium 7.9 mg/dL (8.6-10.3); Carbon Dioxide 32 mEq/L (23-29); Chloride 92 mEq/L (98-107); Glucose 134 mg/dL (70-105); Magnesium 1.7 mg/dL (1.6-2.6); Osmolality,Calculated 265 (280-300); Potassium 3.6 mEq/L (3.5-5.1); Sodium 127 mEq/L (136-145); eGFR For African Americans > 60 (> 60); eGFR For Non-African Americans > 60 (> 60)
[2021-01-24] MEDS: Sennosides/Docusate Sodium TABLET PO SCH ×2 (08:29→19:31)
[2021-01-24] MEDS: *HR* OxyCODONE Immed Rel 5 MG TABLET PO PRN (08:29)
[2021-01-24] MEDS: Metoprolol XL (24 HR) Succ 50 MG TAB.ER.24H PO SCH (08:30)
[2021-01-24] MEDS: Cyanocobalamin (B-12) 1,000 MCG TABLET PO SCH (08:30)
[2021-01-24] MEDS: Acetaminophen 325 MG TABLET PO PRN (08:30)
[2021-01-24] MEDS: Multivit/Ca/Min/Fe/FA 1 TAB TABLET PO SCH ×2 (08:30→19:32)
[2021-01-24] MEDS: amLODIPine 5 MG TABLET PO SCH (08:30)
[2021-01-24] MEDS: Aspirin 81 MG TAB.CHEW PO SCH (08:30)
[2021-01-24] MEDS: levoFLOXacin 500 MG TABLET PO SCH (08:30)
[2021-01-24] MEDS: lisinopriL 20 MG TABLET PO SCH (08:30)
[2021-01-24] MEDS: Furosemide 40 MG/4 ML VIAL IVP SCH ×2 (08:31→17:28)
[2021-01-24] MEDS: polyethylene glycoL 3350 17 GM POWD.PACK PO SCH (08:31)
[2021-01-24] MEDS ORDERED: predniSONE 20 MG TABLET PO SCH (09:00)
[2021-01-24] MEDS: Budesonide/Formoterol 80/4.5 1 PUFF INH IH SCH ×2 (11:05→22:02)
[2021-01-24] MEDS ORDERED: Vancomycin 1,250 MG/262.5 ML IV.SOLN IVPB SCH (16:00)
[2021-01-24] MEDS ORDERED: cefTRIAXone 1,000 MG in Water for inj. (sterile) 10 ML IVP SCH (16:00)
[2021-01-24 16:36] LABS: Basophils % 0.1 %; Eosinophils % 0.3 %; Hematocrit 28.5 % (37.5-50.1); Immature Granulocytes % 0.8 % (0-4); Lymphocytes # 0.3 K/mcL (0.6-4.6); Lymphocytes % 2.8 %; Mean Corpuscular HGB Conc 31.6 g/dL (31.6-35.5); Mean Corpuscular Hemoglobin 29.3 pg (28.0-33.3); Mean Corpuscular Volume 92.8 fL (83.0-100.0); Mean Platelet Volume 8.2 fL (9.4-12.4); Monocytes # 0.7 K/mcL (0.0-1.3); Monocytes % 6.1 %; Neutrophils # 10.7 K/mcL (1.6-8.9); Platelet Count 417 K/mcL (140-400); Red Blood Count 3.07 M/mcL (4.19-5.50); Segmented Neutrophils % 89.9 %; White Blood Count 11.9 K/mcL (4.3-11.1)
[2021-01-24] MEDS ORDERED: *HR* Warfarin 3 MG TABLET PO ONE (18:00)
[2021-01-24] MEDS: Latanoprost 2.5 ML BOTTLE RIGHT EYE SCH (19:32)
[2021-01-24 20:15] VITALS: BP 143/78; PULSE 93; RESP 18; TEMP 98.1; O2SAT 95
[2021-01-26 03:44] LABS: Acinetobacter baumannii by PCR Not Detected (Not Detect); Candida albicans by PCR Not Detected (Not Detect); Candida glabrata by PCR Not Detected (Not Detect); Candida krusei by PCR Not Detected (Not Detect); Candida parapsilosis by PCR Not Detected (Not Detect); Candida tropicalis by PCR Not Detected (Not Detect); Enterobacter cloacae Cmplx PCR Not Detected (Not Detect); Enterobacteriaceae by PCR Not Detected (Not Detect); Enterococcus by PCR DETECTED (Not Detect); Escherichia coli by PCR Not Detected (Not Detect); Klebsiella oxytoca by PCR Not Detected (Not Detect); Klebsiella pneumoniae by PCR Not Detected (Not Detect); Proteus by PCR Not Detected (Not Detect); Pseudomonas aeruginosa by PCR Not Detected (Not Detect); Serratia marcescens by PCR Not Detected (Not Detect); Staphylococcus aureus by PCR Not Detected (Not Detect); Staphylococcus by PCR Not Detected (Not Detect); Streptococcus agalactiae(B)PCR Not Detected (Not Detect); Streptococcus by PCR Not Detected (Not Detect); Streptococcus pneumoniae PCR Not Detected (Not Detect); Streptococcus pyogenes (A) PCR Not Detected (Not Detect); vanA/B Vancomycin-Resist Genes Not Detected (Not Detect)
== END 2021-01-24 21:49 | disposition short-term general hospital (02) | DRG 811 ==
LOC: INPGRE 20:08
PROVIDERS: ADMIT Family Medicine; ATTEND Family Medicine